=== PATIENT | male | born 1965 | race Caucasian/White ===

== ENCOUNTER 2025-02-27 19:52 | Observation (INO) | payer SELFPAY ==
[2025-02-27 20:32] LABS: BASOPHILS ABSOLUTE AUTO 0.03 K/uL (0.00-0.20); BASOPHILS PERCENT AUTO 0.6 % (0.0-1.0); EOSINOPHILS ABSOLUTE AUTO 0.00 K/uL (0.00-0.45); EOSINOPHILS PERCENT AUTO 0.0 % (0.0-6.0); IMMATURE GRAN ABSOLUTE AUTO 0.02 K/uL (0.00-0.05); IMMATURE GRAN PERCENT AUTO 0.4 % (0.0-0.4); LYMPHOCYTES ABSOLUTE AUTO 0.50 K/uL (1.00-4.80); LYMPHOCYTES PERCENT AUTO 10.7 % (24.0-44.0); MEAN PLATELET VOLUME 10.1 fL (9.4-12.4); MONOCYTES ABSOLUTE AUTO 0.67 K/uL (0.00-0.80); MONOCYTES PERCENT AUTO 14.3 % (0.0-8.0); NEUTROPHILS ABSOLUTE AUTO 3.45 K/uL (1.80-7.70); NEUTROPHILS PERCENT AUTO 74.0 % (41.0-71.0); NRBC ABSOLUTE 0.00 K/uL (0.00-0.02); NRBC PERCENT 0.0 /100WBC (0.0-0.2); PLATELET COUNT,PLT 108 K/uL (150-400); RED BLOOD CELL COUNT 3.51 M/uL (4.52-5.90); WHITE BLOOD CELL COUNT,WBC 4.67 K/uL (3.9-11.3)
[2025-02-27 21:11] LABS: ETHANOL BLOOD MEDICAL 69.0 mg/dL; TSH ULTRASENSITIVE 3.01 uIU/mL (0.36-3.74)
[2025-02-27 21:13] LABS: A/G RATIO 0.9 (0.9-1.6); ALANINE AMINOTRANSFERASE,ALT 296 IU/L (14-63); ASPARTATE AMNIOTRANSFERASE,AST 394 IU/L (15-37); BILIRUBIN TOTAL 1.9 mg/dL (0.2-1.0); BLOOD UREA NITROGEN,BUN 12 mg/dL (7.0-18.0); CARBON DIOXIDE,CO2 22.8 mmol/L (21.0-32.0); CHLORIDE,CL 96 mmol/L (98-107); CREATININE 1.3 mg/dL (0.8-1.3); GLUCOSE RANDOM 129 mg/dL (74-106); POTASSIUM,K 3.4 mmol/L (3.5-5.1); PRO B-TYPE NATRIUR PEPT,BNPPRO 92 pg/mL (0-125); PROTEIN TOTAL,TP 7.1 g/dL (6.4-8.2); SODIUM,NA 135 mmol/L (136-148)
[2025-02-27 21:30] LABS: ESTIMATED GFR 64 mL/min (>60)
[2025-02-27 22:26] LABS: GLUCOSE,URINE NEGATIVE (NEGATIVE); OCCULT BLOOD,URINE NEGATIVE (NEGATIVE)
[2025-02-27 22:27] LABS: APPEARANCE,URINE HAZY
[2025-02-27 22:36] LABS: AMPHETAMINES SCREEN, URINE NEGATIVE (CUTOFF=500); BUPRENORPHINE SCREEN,URINE NEGATIVE (CUTOFF=10); METHADONE SCREEN, URINE NEGATIVE (CUTOFF=200); METHAMPHETAMINES SCREEN, URINE NEGATIVE (CUTOFF=500); OXYCODONE SCREEN,URINE NEGATIVE (CUT0FF=100); PCP SCREEN,URINE NEGATIVE (CUTOFF=25); THC SCREEN,URINE 20 NG/ML NEGATIVE (CUTOFF=50)
[2025-02-27 22:37] LABS: EPITHELIAL CELLS,URINE NOT SEEN (NONE-FEW)
[2025-02-27] MEDS: Iopamidol 755 Mg/ML 100 ML Bottle IVPUSH ONE (22:43)
[2025-02-28] MEDS: cefTRIAXone 2 GM in Water For Injection, Sterile 20 ML IVPUSH ONE (00:58)
[2025-02-28] MEDS ORDERED: PHENobarbital Sodium 130 MG/ML SDV IVPUSH PRN (01:55)
[2025-02-28] MEDS: Thiamine 200 MG/2 ML MDV IVPUSH SCH (02:56)
[2025-02-28 06:10] LABS: BASOPHILS ABSOLUTE AUTO 0.03 K/uL (0.00-0.20); BASOPHILS PERCENT AUTO 0.8 % (0.0-1.0); EOSINOPHILS ABSOLUTE AUTO 0.00 K/uL (0.00-0.45); EOSINOPHILS PERCENT AUTO 0.0 % (0.0-6.0); IMMATURE GRAN ABSOLUTE AUTO 0.02 K/uL (0.00-0.05); IMMATURE GRAN PERCENT AUTO 0.5 % (0.0-0.4); LYMPHOCYTES ABSOLUTE AUTO 0.84 K/uL (1.00-4.80); LYMPHOCYTES PERCENT AUTO 21.0 % (24.0-44.0); MEAN PLATELET VOLUME 10.4 fL (9.4-12.4); MONOCYTES ABSOLUTE AUTO 0.80 K/uL (0.00-0.80); MONOCYTES PERCENT AUTO 20.0 % (0.0-8.0); NEUTROPHILS ABSOLUTE AUTO 2.31 K/uL (1.80-7.70); NEUTROPHILS PERCENT AUTO 57.7 % (41.0-71.0); NRBC ABSOLUTE 0.00 K/uL (0.00-0.02); NRBC PERCENT 0.0 /100WBC (0.0-0.2); PLATELET COUNT,PLT 93 K/uL (150-400); RED BLOOD CELL COUNT 3.52 M/uL (4.52-5.90); WHITE BLOOD CELL COUNT,WBC 4.00 K/uL (3.9-11.3)
[2025-02-28 06:32] LABS: A/G RATIO 0.9 (0.9-1.6); ALANINE AMINOTRANSFERASE,ALT 279.0 IU/L (14-63); ASPARTATE AMNIOTRANSFERASE,AST 303.0 IU/L (15-37); BILIRUBIN TOTAL 1.8 mg/dL (0.2-1.0); BLOOD UREA NITROGEN,BUN 14.0 mg/dL (7.0-18.0); CARBON DIOXIDE,CO2 22.2 mmol/L (21.0-32.0); CHLORIDE,CL 97.0 mmol/L (98-107); CHOLESTEROL HDL 113.0 mg/dL (40-60); CHOLESTEROL LDL CALCULATED 102.0 mg/dL (60-180); CHOLESTEROL TOTAL 222.0 mg/dL (50-200); CREATININE 1.1 mg/dL (0.8-1.3); EST CRCL DRUG DOSING (CG) 77.96 mL/min; GLUCOSE RANDOM 97.0 mg/dL (74-106); POTASSIUM,K 3.7 mmol/L (3.5-5.1); PROTEIN TOTAL,TP 7.4 g/dL (6.4-8.2); SODIUM,NA 136.0 mmol/L (136-148); VLDL CHOLESTEROL 7.0 mg/dL (5-55)
[2025-02-28 06:34] LABS: ESTIMATED GFR 78.0 mL/min (>60)
[2025-03-01] MEDS ORDERED: cefTRIAXone 2 GM in Water For Injection, Sterile 20 ML IVPUSH SCH
== END 2025-02-28 12:00 | disposition home or self-care (01) ==
LOC: MW.ED 19:52 → MW.MS 02-28 00:27
PROVIDERS: ADMIT Family Medicine; ATTEND Family Medicine
DX: J18.9 Pneumonia, unspecified organism (principal); F10.230 Alcohol dependence with withdrawal, uncomplicated; R55 Syncope and collapse; R74.8 Abnormal levels of other serum enzymes; I10 Essential (primary) hypertension; Z79.899 Other long term (current) drug therapy
CPT/HCPCS: 36415; 71045; 71275; 80053; 80061; 80305; 80307; 81001; 82947; 83036; 83605; 83880; 84443; 84484; 85025; 85379; 87040; 87086; 93005; 96361; 96365; 96375; 99285; A9270; G0378; J0696; J3411; J3490; J7030; Q9967; 93010; 99235